=== PATIENT | female | born 1970 | race Two or more races ===

== ENCOUNTER 2023-06-03 21:40 | Emergency (ER) | payer OTHER ==
[2023-06-03 21:47] VITALS: TEMP 98; BMI 25.4
[2023-06-03] MEDS ORDERED: ACETAMINOPHEN 1000 MG/100 ML BAG IVPB ONE (22:32)
[2023-06-03] MEDS ORDERED: ACETAMINOPHEN INJECTION 100 ML IVPB ONE (22:38)
[2023-06-03 22:59] LABS: BASO % 0.9 % (0-2.0); EOS % 1.9 % (0-4.5); HEMATOCRIT 34.7 % (32.4-45.2); HEMOGLOBIN 12.1 GM/dL (10.7-15.3); MCH 30.1 pg (25.7-33.7); MCHC 35.1 g/dl (32.0-36.0); MEAN PLT VOLUME 7.2 fl (7.5-11.1); MONO % 9.1 % (3.8-10.2); NEUT % 59.1 % (42.8-82.8); PLATELET COUNT 229 10^3/uL (134-434); RBC 4.03 M/mm3 (3.60-5.2); RDW 13.8 % (11.6-15.6); WHITE BLOOD COUNT 5.7 K/mm3 (4.0-10.0)
[2023-06-03] MEDS ORDERED: KETOROLAC TROMETHAMINE 15 MG/ML VIAL IVPUSH ONE (23:04)
[2023-06-03] MEDS ORDERED: KETOROLAC TROMETHAMINE 15 MG/ML VIAL ONE (23:10)
[2023-06-03 23:21] LABS: POTASSIUM 4.6 mmol/L (3.5-5.1)
[2023-06-03 23:22] LABS: CALCIUM 9.1 mg/dL (8.5-10.1)
[2023-06-03 23:23] LABS: ALBUMIN 3.9 g/dl (3.4-5.0)
[2023-06-03 23:25] LABS: BLOOD UREA NITROGEN 17.8 mg/dL (7-18); URIC ACID 4.9 mg/dL (2.6-7.2)
[2023-06-03 23:28] LABS: BILIRUBIN,TOTAL 0.5 mg/dL (0.2-1); CREATININE 0.7 mg/dL (0.55-1.3); TOT PROT 7.4 g/dl (6.4-8.2)
[2023-06-04 00:28] VITALS: BP 125/77; PULSE 68; RESP 14
[2023-06-04 00:45] LABS: ERYTHROCYTE SEDIMENTATION RATE 21 mm/hr (0-30)
== END 2023-06-04 01:10 | disposition home or self-care (01) ==
LOC: JER 21:40
PROC: 3E033NZ Introduction of Analgesics, Hypnotics, Sedatives into Peripheral Vein, Percutaneous Approach (ICD-10-PCS; principal; 2023-06-03)
PROC: 3E0333Z Introduction of Anti-inflammatory into Peripheral Vein, Percutaneous Approach (ICD-10-PCS; 2023-06-03)
DX: M79.10 Myalgia, unspecified site (principal); R07.89 Other chest pain; R22.31 Localized swelling, mass and lump, right upper limb; R11.0 Nausea; R22.43 Localized swelling, mass and lump, lower limb, bilateral
CPT/HCPCS: 71046-TC-FY; 80053; 83735; 84484; 84550; 85025; 85651; 86140; 93005; 93010; 99285-25